=== PATIENT | male | born 1965 | race Caucasian/White ===

== ENCOUNTER 2016-09-07 17:19 | Emergency (ER) | payer OTHER ==
--- NOTE | 2016-09-07 17:58 | ERRECORD ---
[facility] EMERGENCY RECORD HPI COUGH (17:40 LHOD) CHIEF COMPLAINT: Patient presents for evaluation of cough. HISTORIAN: History provided by patient. TIME COURSE: 3-4 DAYS OF SORE THROAT AND NASAL CONGESTION. NOW COUGHING UP GREEN PHLEGM. NO FEVER. ROS (22:23 LHOD) CONSTITUTIONAL: Historian denies fever. ENT: Historian reports rhinorrhea, reports sore throat. CARDIOVASCULAR: Historian denies chest pain, denies edema. RESPIRATORY: Historian reports cough, denies shortness of breath, reports sputum. GI: Historian denies abdominal pain, denies nausea, denies vomiting. MUSCULOSKELETAL: Historian denies back pain, denies neck pain. SKIN: Historian denies rash. NEUROLOGIC: Historian denies headache. HEMO/LYMPHATIC: Historian denies easy bruising. NOTES: All systems reviewed, negative except as described above. PAST MEDICAL HISTORY MEDICAL HISTORY: Past medical history includes history of diabetes, Type II, Past medical history includes history of hyperlipidemia, high cholesterol, Past medical history includes history of hypertension, which has been treated, Patient is compliant. (17:28 CJEF) MALE SURGICAL HISTORY: TUMOR REMOVED R SIDE NECK, Surgical history of orthopedic surgery, R & L SHOULDER. L KNEE SCOPED FOR TORN MENISCUS. (17:28 CJEF) PSYCHIATRIC HISTORY: Notes: DENIES. (17:28 CJEF) SOCIAL HISTORY: Patient denies alcohol use, Patient denies drug use, Patient currently uses tobacco, smokes cigarettes, daily, IN PROCESS OF QUITTING NOW - USING ELECTRONIC, Patient denies alcohol use, Patient denies drug use, Patient currently uses tobacco, smokes cigarettes, daily, Patient has smoked for 30 years, Patient smokes 1 pack per day. (17:28 CJEF) NOTES: Nursing records reviewed. (17:31 LHOD) KNOWN ALLERGIES morphine: Severity: Severe, - HEADACHE CURRENT MEDICATIONS pioglitazone: TABLET : Strength - 15 mg : ORAL Patient Dose: 15 mg Oral once a day. (17:27 CJEF) meloxicam: TABLET : Strength - 7.5 mg : ORAL Patient Dose: 7.5 mg Oral once a day. (17:27 CJEF) aspirin: &a-1R&a+25V*p+0X*[id number]*c202B*c15G*c2P*p-0X&a-25V&a+1R Name: Rolo Butt : 1965 M51 MedRec: [id number] AcctNum: [id number] Prepared: SatSep 07, 2016 22:29 by Interface Page 1 of 3 pMD [facility] EMERGENCY RECORD TABLET : Strength - 81 mg : ORAL Patient Dose: 81 mg Oral. (17:28 CJEF) atorvastatin: TABLET : Strength - 10 mg : ORAL Patient Dose: 20 mg Oral. (17:28 CJEF) lisinopril: TABLET : Strength - 2.5 mg : ORAL Patient Dose: 10 mg Oral once a day. (17:28 CJEF) VITAL SIGNS VITAL SIGNS: Pulse: 78, Resp: 18, Temp: 98.6 (Tympanic), Pain: 4, O2 sat: 97 on Room Air, Time: 09/07/2016 17:23. (17:23 CJEF) BP: 152/71, Time: 09/07/2016 17:28. (17:28 CJEF) PHYSICAL EXAM (22:24 LHOD) CONSTITUTIONAL: Vital Signs Reviewed, Patient afebrile, Pulse normal, Blood pressure, hypertensive, Respiratory rate normal, Normal pulse oximetry, Patient appears non toxic, Patient alert and oriented to person, place and time. EYES: Pupils equally round and reactive to light, Extraocular muscles intact. ENT: Ear exam normal, Pharynx, injected bilaterally. NECK: Neck exam included findings of normal range of motion, Trachea midline. RESPIRATORY CHEST: Respiratory exam included findings of no respiratory distress, Breath sounds clear. CARDIOVASCULAR: Cardiovascular exam included findings of heart rate regular rate and rhythm, Heart sounds normal. ABDOMEN MALE: Abdominal exam included findings of abdomen nontender. BACK: Back exam normal. UPPER EXTREMITY: Upper extremity exam normal. LOWER EXTREMITY: Left lower leg exam normal, Right lower leg exam normal. NEURO: Neuro exam findings include patient oriented to person, place and time, Speech normal. PROBLEM LIST No recorded problems DIAGNOSIS (17:35 LHOD) FINAL: PRIMARY: BRONCHITIS / PHARYNGITIS. PRESCRIPTION (17:36 LHOD) Zithromax oral: TABLET : 250 mg : ORAL : Quantity: 1 Unit: tab(s) Route: ORAL Schedule: once a day (in the morning) Dispense: 12 May substitute. Refills: No Refills . NOTES: No Refills. &a-1R&a+25V*p+0X*[id number]*c202B*c15G*c2P*p-0X&a-25V&a+1R Name: Rolo Butt : 1965 M51 MedRec: [id number] AcctNum: [id number] Prepared: SatSep 07, 2016 22:29 by Interface Page 2 of 3 pMD [facility] EMERGENCY RECORD DISPOSITION PATIENT: Disposition Type: Discharge, Disposition: *Discharge Home, Condition: Good. (17:35 LHOD) Patient left the department. (17:46 CJEF) Polanco: CJMIKE=EMMA Salazar, Magda LHOD=MD Jovanny, Srikanth &a-1R&a+25V*p+0X*[id number]*c202B*c15G*c2P*p-0X&a-25V&a+1R Name: Rolo Butt : 1965 M51 MedRec: [id number] AcctNum: [id number] Prepared: SatSep 07, 2016 22:29 by Interface Page 3 of 3 pMD MTDD
--- NOTE | 2016-09-07 18:02 | PICIS ---
[facility] EMERGENCY RECORD TRIAGE (17:25 CJEF) TRIAGE NOTES: PT REPORTS SORE THROAT AND UPPER RESPIRATORY SINUS ISSUES. PT REPORTS COUGHING THICK GREEN MUCUS. PT REPORTS SYMPTOMS STARTED X4 DAYS AGO. (17:25 CJEF) PATIENT: NAME: Rolo Butt, AGE: 51, GENDER: male, : Sonal 1965, TIME OF GREET: SatSep 07, 2016 17:20, PREFERRED LANGUAGE: Singaporean, ETHNICITY: Not or , ECODE BILLING MAP: [facility], SSN: [id number], Zip Code: [address], KG WEIGHT: 135.17, PHONE: , , , PERSON ID: [id number], PCP: CY GUERRA. (17:25 CJEF) COMPLAINT: SORE THROAT/ SINUS PROBLEMS. (17:25 CJEF) ADMISSION: URGENCY: 4 Non Urgent, ADMISSION SOURCE: Home, TRANSPORT: Walk-in, BED: TRIAGE. (17:25 CJEF) ASSESSMENT: Assessment: SORE THROAT, COUGH. (17:28 CJEF) PAIN: Patient complains of pain described as, Location THROAT. (17:28 CJEF) IMMUNIZATIONS: Flu vaccine not up to date, Tetanus immunization up to date, Pneumococcal vaccine not up to date. (17:28 CJEF) SIRS SCORING: Heart Rate 55-109 (0), Temp range 96.8-101.1 (0), respiratory rate 12-24 (0), Mental Status altered: no (0), Infection or Suspected Infection: No. (17:28 CJEF) TRIAGE SCREENING: Patient denies suicidal ideation, Patient denies presence of domestic violence. (17:28 CJEF) PROVIDERS: TRIAGE NURSE: Magda Salazar RN. (17:25 CJEF) VITAL SIGNS: Pulse 78, Resp 18, Temp 98.6, (Tympanic), Pain 4, O2 Sat 97, on Room Air, Time 09/07/2016 17:23. (17:23 CJEF) BP 152/71, Time 09/07/2016 17:28. (17:28 CJEF) PREVIOUS VISIT ALLERGIES: morphine. (17:25 CJEF) morphine. (17:28 CJEF) KNOWN ALLERGIES morphine: Severity: Severe, - HEADACHE CURRENT MEDICATIONS pioglitazone: TABLET : Strength - 15 mg : ORAL Patient Dose: 15 mg Oral once a day. (17:27 CJEF) meloxicam: TABLET : Strength - 7.5 mg : ORAL Patient Dose: 7.5 mg Oral once a day. (17:27 CJEF) aspirin: TABLET : Strength - 81 mg : ORAL Patient Dose: 81 mg Oral. (17:28 CJEF) atorvastatin: TABLET : Strength - 10 mg : ORAL Patient Dose: 20 mg Oral. (17:28 CJEF) lisinopril: TABLET : Strength - 2.5 mg : ORAL &a-1R&a+25V*p+0X*k5039B*c202B*c15G*c2P*p-0X&a-25V&a+1R Name: Rolo Butt : 1965 M51 MedRec: [id number] AcctNum: [id number] Prepared: SatSep 07, 2016 17:59 by Interface Page 1 of 4 pMD [facility] EMERGENCY RECORD Patient Dose: 10 mg Oral once a day. (17:28 CJEF) VITAL SIGNS VITAL SIGNS: Pulse: 78, Resp: 18, Temp: 98.6 (Tympanic), Pain: 4, O2 sat: 97 on Room Air, Time: 09/07/2016 17:23. (17:23 CJEF) BP: 152/71, Time: 09/07/2016 17:28. (17:28 CJEF) NURSING ASSESSMENT: ENT (17:29 CJEF) CONSTITUTIONAL: Complex assessment performed, Patient arrives ambulatory, Gait steady, History obtained from patient, Patient appears comfortable, Patient cooperative, Patient alert, Oriented to person, place and time, Skin warm, Skin dry, Skin normal in color, Mucous membranes pink, Mucous membranes moist, Patient is well-groomed, PT REPORTS SORE THROAT AND UPPER RESPIRATORY SINUS ISSUES. PT REPORTS COUGHING THICK GREEN MUCUS. PT REPORTS SYMPTOMS STARTED X4 DAYS AGO. PAIN: aching pain, to the throat, on a scale 0-10 patient rates pain as 4. ENT: Ear assessment findings include ear normal to inspection, Nasal assessment findings include nose normal to inspection, Discharge, green, from bilateral nare, Congestion, bilaterally, Mouth and throat assessment findings include mouth inspection normal, Associated with fever, Maximum temperature (degree F) 100.3, orally, SEVERAL DAYS AGO. RESPIRATORY/CHEST: Breath sounds clear, Respiratory assessment findings include respiratory effort easy, Respirations regular, Conversing normally, Neck and chest exam findings include trachea midline, Chest expansion equal, Chest movement symmetrical, no signs of distress, Associated with cough, productive of, green sputum. NOTES: Patient tolerated procedure well. SAFETY: Side rails up, Cart/Stretcher in lowest position, Family at bedside, Call light within reach, Hospital ID band on. NURSING PROCEDURE: DISCHARGE NOTE (17:45 [facility]) DISCHARGE: Patient discharged to home, ambulating without assistance, driving self, accompanied by //partner, Summary of Care printed/ provided, Patient requested and was provided an electronic copy of Discharge Instructions, Transition record given to patient, Discharge instructions given to patient, Simple or moderate discharge teaching performed, Prescriptions given and instructions on side effects given, Medication reconciliation form given, Above person(s) verbalized understanding of discharge instructions and follow-up care, Patient treated and evaluated by physician. BELONGINGS: Belongings remain with patient. NOTES: Patient tolerated procedure well. SAFETY: Side rails up, Cart/Stretcher in lowest position, Family at bedside, Call light within reach, Hospital ID band on. &a-1R&a+25V*p+0X*e2959P*c202B*c15G*c2P*p-0X&a-25V&a+1R Name: Rolo Butt : 1965 M51 MedRec: [id number] AcctNum: [id number] Prepared: SatSep 07, 2016 17:59 by Interface Page 2 of 4 pMD [facility] EMERGENCY RECORD HPI COUGH (17:40 LHOD) CHIEF COMPLAINT: Patient presents for evaluation of cough. HISTORIAN: History provided by patient. TIME COURSE: 3-4 DAYS OF SORE THROAT AND NASAL CONGESTION. NOW COUGHING UP GREEN PHLEGM. NO FEVER. PAST MEDICAL HISTORY MEDICAL HISTORY: Past medical history includes history of diabetes, Type II, Past medical history includes history of hyperlipidemia, high cholesterol, Past medical history includes history of hypertension, which has been treated, Patient is compliant. (17:28 [facility]) MALE SURGICAL HISTORY: TUMOR REMOVED R SIDE NECK, Surgical history of orthopedic surgery, R & L SHOULDER. L KNEE SCOPED FOR TORN MENISCUS. (17:28 CJEF) PSYCHIATRIC HISTORY: Notes: DENIES. (17:28 CJEF) SOCIAL HISTORY: Patient denies alcohol use, Patient denies drug use, Patient currently uses tobacco, smokes cigarettes, daily, IN PROCESS OF QUITTING NOW - USING ELECTRONIC, Patient denies alcohol use, Patient denies drug use, Patient currently uses tobacco, smokes cigarettes, daily, Patient has smoked for 30 years, Patient smokes 1 pack per day. (17:28 CJEF) NOTES: Nursing records reviewed. (17:31 LHOD) EVENTS TRANSFER: Triage to Emergency Triage. (SatSep 07, 2016 17:25 CJEF) Emergency Triage to Main ED -01. (17:28 CJEF) Removed from Emergency Main ED -01. (17:46 CJEF) PROBLEM LIST No recorded problems DIAGNOSIS (17:35 LHOD) FINAL: PRIMARY: BRONCHITIS / PHARYNGITIS. DISPOSITION PATIENT: Disposition Type: Discharge, Disposition: *Discharge Home, Condition: Good. (17:35 LHOD) Patient left the department. (17:46 CJEF) INSTRUCTION (17:37 LHOD) DISCHARGE: BRONCHITIS, ABX TX (ADULT). FOLLOWUP: Follow up with Primary Care Physician as needed. SPECIAL: CHLORASEPTIC THROAT SPRAY. OVER THE COUNTER DECONGESTANT / ANTI-HISTAMINE *RETURN IF WORSE Follow-up with your PCP. &a-1R&a+25V*p+0X*j6563V*c202B*c15G*c2P*p-0X&a-25V&a+1R Name: Rolo Butt : 1965 M51 MedRec: [id number] AcctNum: [id number] Prepared: SatSep 07, 2016 17:59 by Interface Page 3 of 4 pMD [facility] EMERGENCY RECORD PRESCRIPTION (17:36 LHOD) Zithromax oral: TABLET : 250 mg : ORAL : Quantity: 1 Unit: tab(s) Route: ORAL Schedule: once a day (in the morning) Dispense: 12 May substitute. Refills: No Refills . NOTES: No Refills. IMAGING (17:47 CJEF) *DISCHARGE INSTRUCTIONS RECEIPT: Image captured from scanner. *SUPPLY CHARGE SHEET: Image captured from scanner. Polanco: CJEF=EMMA Salazar, Magda LHOD=MD Jovanny, Srikanth &a-1R&a+25V*p+0X*s3785X*c202B*c15G*c2P*p-0X&a-25V&a+1R Name: Rolo Butt : 1965 M51 MedRec: [id number] AcctNum: [id number] Prepared: SatSep 07, 2016 17:59 by Interface Page 4 of 4 pMD MTDD
== END 2016-09-07 17:46 | disposition home or self-care (01) ==
LOC: MADERS 17:19
DX: J02.9 Acute pharyngitis, unspecified (principal); J40 Bronchitis, not specified as acute or chronic; E11.9 Type 2 diabetes mellitus without complications; E78.5 Hyperlipidemia, unspecified; E78.00 Pure hypercholesterolemia, unspecified; I10 Essential (primary) hypertension; F17.210 Nicotine dependence, cigarettes, uncomplicated; Z79.82 Long term (current) use of aspirin; Z79.899 Other long term (current) drug therapy
CPT/HCPCS: 99283

== ENCOUNTER 2018-03-02 19:27 | Emergency (ER) | payer OTHER ==
[2018-03-02] MEDS ORDERED: Ibuprofen 800 MG TAB ONE (20:05)
[2018-03-02] MEDS ORDERED: Cyclobenzaprine 10 MG TAB ONE (20:05)
[2018-03-02] MEDS ORDERED: HYDROcodone/Acetaminophen 5/325 mg Tablet ONE (20:07)
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
== END 2018-03-02 20:15 | disposition home or self-care (01) ==
LOC: MADERS 19:27
DX: S20.212A Contusion of left front wall of thorax, initial encounter (principal); E11.9 Type 2 diabetes mellitus without complications; E78.5 Hyperlipidemia, unspecified; I10 Essential (primary) hypertension; F17.210 Nicotine dependence, cigarettes, uncomplicated; V86.99XA Unspecified occupant of other special all-terrain or other off-road motor vehicle injured in nontraffic accident, initial encounter
CPT/HCPCS: 99283